=== PATIENT | female | born 2005 | race Caucasian/White ===

== ENCOUNTER 2023-03-13 23:24 | Emergency (ER) | payer OTHER ==
[~2023-03-13] VITALS: Ht 160 cm; Wt 59.1 kg
[2023-03-13 23:29] VITALS: BP 145/97; TEMP 97.9
[2023-03-14] MEDS ORDERED: Home HYDROcodone/Acetaminophen 5/325 MG #4 TABS/PACK PO ONE (00:15)
[2023-03-14 00:44] VITALS: PULSE 89
== END 2023-03-14 00:44 | disposition home or self-care (01) ==
LOC: COL.ER 23:24
DX: S86.912A Strain of unspecified muscle(s) and tendon(s) at lower leg level, left leg, initial encounter (principal); X50.1XXA Overexertion from prolonged static or awkward postures, initial encounter; Y93.01 Activity, walking, marching and hiking; Y92.009 Unspecified place in unspecified non-institutional (private) residence as the place of occurrence of the external cause
CPT/HCPCS: L1830; L1846